=== PATIENT | female | born 1975 | race Caucasian/White ===

== ENCOUNTER 2024-04-17 13:26 | Outpatient (CLI) | payer BC ==
[2024-04-17] MEDS ORDERED: Sterile Water 10 ML ONE (15:01)
[2024-04-17] MEDS ORDERED: Sincalide 5 MCG VIAL ONE (15:02)
[2024-04-17] MEDS ORDERED: Bacteriostatic Normal Saline 30 ML VIAL ONE (15:03)
== END 2024-04-17 13:27 | disposition home or self-care (01) ==
LOC: NM 13:26
PROVIDERS: ATTEND Internal Medicine
DX: R11.2 Nausea with vomiting, unspecified (principal); R10.13 Epigastric pain; R19.7 Diarrhea, unspecified
CPT/HCPCS: 78227; A9537; J2805